=== PATIENT | male | born 1965 | race Caucasian/White ===

== ENCOUNTER 2018-06-30 06:33 | Day surgery (SDC) | payer BC ==
[~2018-06-30 06:33] MED LIST: Buffered Lidocaine 0.9% SYRIN* 5 ML/SYR SYRINGE INTRADERM ONE
[2018-06-30] MEDS ORDERED: ROPIVACAINE 5 MG/ML 30 ML BTL (0.5%) ONE (06:54)
[2018-06-30] MEDS ORDERED: Lidocaine 1% INJ* 10 MG/ML 30 ML SDV ONE (06:54)
[2018-06-30] MEDS ORDERED: ceFAZolin 2 GM PREMIX (*) 2 GM/50 ML BAG IVPB ONE (07:04)
[2018-06-30] MEDS ORDERED: Midazolam* 1 MG/ML 2 ML VIAL (2 MG) ONE (07:45)
[2018-06-30] MEDS ORDERED: fentaNYL* 50 MCG/ML 2 ML VIAL (100 MCG VIAL) ONE ×2 (07:45→08:53)
[2018-06-30] MEDS ORDERED: Propofol* 10 MG/ML 20 ML BTL IV PUSH ONE (08:38)
[2018-06-30] MEDS ORDERED: Naloxone* 0.4 MG/ML 1 ML VIAL IV PRN (09:17)
[2018-06-30] MEDS ORDERED: oxyCODONE/Acetamin 5/325 MG* TAB PO PRN (09:17)
[2018-06-30] MEDS ORDERED: Acetaminophen TAB* 325 MG PO PRN (09:17)
[2018-06-30] MEDS ORDERED: fentaNYL* 50 MCG/ML 2 ML VIAL (100 MCG VIAL) IV PRN (09:17)
[2018-06-30] MEDS ORDERED: Ondansetron INJ* 2 MG/ML VIAL IV PRN (09:17)
[2018-06-30 09:33] VITALS: BP 139/75
--- NOTE | 2018-07-01 02:17 | OP ---
DATE OF OPERATION: 06/30/18 - [facility] DATE OF : 65 ATTENDING SURGEON: Lizette Caballero MD POLICE GUARD: KHALIDA Gregory. Mr. Suazo did help throughout the procedure with preparation of the arm, wound retraction, and wound closure. ANESTHESIOLOGIST: Dr. Raya. ANESTHESIA: Low MAC with local 0.5% ropivacaine. PRE-OP DIAGNOSIS: Severe right carpal tunnel syndrome or compression of the median nerve of the wrist. POST-OP DIAGNOSIS: Severe right carpal tunnel syndrome or compression of the median nerve of the wrist. OPERATIVE PROCEDURE: Right open carpal tunnel release. TOURNIQUET TIME: 7 minutes. COMPLICATIONS: None. SPECIMEN: None. ESTIMATED BLOOD LOSS: Less than 25 cc. BRIEF HISTORY/INDICATION: Mr. Saez is a 52-year-old gentleman with chronic right hand pain and numbness. He failed conservative treatment for carpal tunnel syndrome and EMG/nerve conduction studies confirmed severe carpal tunnel syndrome. He elected to undergo open right carpal tunnel release. Informed consent was obtained from the patient. He understood the risks of surgery included but were not limited to bleeding, infection, damage to nearby structures, continued pain, continued weakness, continued numbness, need for further surgery, stroke, heart attack, blood clot, and . He wished to proceed. INTRAOPERATIVE FINDINGS: Intraoperatively, the patient was noted to have thickened fibrotic palmar fascia and a thickened fibrous transverse carpal ligament. No masses or ganglions were found in the carpal tunnel along the median nerve. DESCRIPTION OF PROCEDURE: Mr. Saez was identified on the preanesthesia unit. His right upper extremity was marked as the correct operative site. Informed consent was signed and placed in the chart. The patient was taken to the operating room and placed under low MAC. Tourniquet was placed on the right upper arm. Right lower extremity was prepped and draped in the usual sterile fashion. Preop time-out was made to correctly identify the patient, site, and side. Appropriate perioperative antibiotics were given within 1 hour of incision. An 8 cc of 0.5% ropivacaine was used for local anesthetic. The tourniquet was inflated and total tourniquet time for this procedure was 7 minutes. A 3-cm longitudinal incision was made over the carpal tunnel of the wrist. Incision was made with a 15-blade. Tenotomies were used to dissect down to the palmar fascia. A 15-blade was used to incise the palmar fascia in line with the incision. The transverse carpal ligament was easily visualized after placement of retractors. A 15-blade was used to meticulously release the transverse carpal ligament longitudinally. This was performed proximally until there was no further ligament identified. This was performed distally to the vascular arch and fat pad. The transverse carpal ligament was noted to be thickened and fibrosed. This was easily released without complication. Median nerve was well visualized. There were no visible ganglions or masses in the carpal tunnel. Tourniquet was turned down at 7 minutes. The incision was copiously irrigated with sterile saline. The incision was carefully closed using interrupted 3-0 nylon suture in a vertical mattress fashion. Sterile Xeroform, 4x4's, and Webril were used to cover the incision. A plaster volar splint was placed with Mustapha wrap. The patient's anesthesia was reversed without difficulty. He was taken to the PACU in stable condition. He will be in a splint with non-weightbearing right upper extremity. He will follow up in 3 days for a splint change. [id number]/[facility] #: [id number] [facility]ITAL[facility]et
== END 2018-06-30 10:14 | disposition home or self-care (01) ==
LOC: OR 06:33
PROVIDERS: ATTEND Orthopaedic Surgery Adult Reconstructive Orthopaedic Surgery
DX: G56.01 Carpal tunnel syndrome, right upper limb (principal); Z72.0 Tobacco use; I10 Essential (primary) hypertension; M54.5 Low back pain
CPT/HCPCS: J0690; J2250; J2704; J2795; J3010

== ENCOUNTER → 2018-08-24 06:40 | Day surgery (SDC) | payer BC ==
[~2018-08-24 06:40] MED LIST changes: +Atracurium* 10 MG/ML 10 ML VIAL ONE; +Buffered Lidocaine 0.9% SYRIN* 5 ML/SYR SYRINGE ONE; +Bupivacaine 0.25% SDV* 30 ML ONE; +Dexamethasone IV* 4 MG/ML 1 ML (4 MG) IV SLOW PU ONE; +Dexamethasone IV* 4 MG/ML 1 ML (4 MG) ONE; +DiMENhydriNATE IV* 50 MG/ML VIAL IV PUSH PRN; +EPHEDrine (Pressors)* 50 MG/ML VIAL ONE; +Famotidine IV* 10 MG/ML 2 ML (20 mg) IV ONE; +Famotidine IV* 10 MG/ML 2 ML (20 mg) ONE; +HYDROmorphone INJ1* 1 MG/ML SYRINGE IV PRN; +HYDROmorphone INJ1* 1 MG/ML SYRINGE ONE; +Ketorolac INJ* 30 MG/ML 1 ML VIAL ONE; +Levalbuterol 0.63MG/3ML NEB* UNIT OF USE INH ONE; +Lidocaine 2% PF * 5 ML VIAL ONE; +Midazolam* 1 MG/ML 5 ML VIAL (5 MG) ONE; +Naloxone* 0.4 MG/ML 1 ML VIAL IV PRN; +Ondansetron INJ* 2 MG/ML VIAL IV PRN; +Ondansetron INJ* 2 MG/ML VIAL ONE; +Propofol* 10 MG/ML 20 ML BTL IV PUSH ONE; +ceFAZolin 2 GM PREMIX in ORs 0 GM/0 ML BAG IVPB ONE; +ceFAZolin 2 GM PREMIX in ORs 2 GM/50 ML BAG IVPB ONE; +fentaNYL* 50 MCG/ML 2 ML VIAL (100 MCG VIAL) ONE; +fentaNYL* 50 MCG/ML 5 ML VIAL (250 MCG VIAL) ONE; +oxyCODONE/Acetamin 5/325 MG* TAB ONE; +oxyCODONE/Acetamin 5/325 MG* TAB PO PRN
[2018-08-24] MEDS: fentaNYL* 50 MCG/ML 2 ML VIAL (100 MCG VIAL) IV PRN ×2 (10:22→10:46)
[2018-08-24 11:36] VITALS: BP 139/83
--- NOTE | 2018-08-24 23:35 | OP ---
DATE OF OPERATION: 08/24/18 - [facility] DATE OF : 65 SURGEON: Ynaiv Rivera MD MOTOR BUS DRIVER: KHALIDA Oliver ANESTHESIOLOGIST: Dr. Vásquez. ANESTHESIA: General. 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 OPERATIVE PROCEDURE: 1. Right wrist proximal row carpectomy with radial styloidectomy. 2. Right posterior interosseous nerve neurectomy. 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 For any substantial labor, due to progressive instability, the wrist will clunk in and out of place and associated with large amount of discomfort and is making it very difficult for him to use the wrist. He has had his carpal tunnel release recently. This helped with numbness and tingling but not with the mechanical dorsal wrist pain. He has gone from been able to lift 80 pounds repetitively to having very limited use of the wrist. I had talked to him about his treatment options. These would include a radioscapholunate fusion versus a scaphoid excision and four-corner fusion versus a proximal row carpectomy. Ultimately, he smokes more than a pack a day and has no desire to stop smoking. I think that the risk of nonunion with either of the aforementioned limited fusions is unacceptably high to me. 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 ESTIMATED BLOOD LOSS: 2 mL. COMPLICATIONS: None. FINDINGS: See above and below. DESCRIPTION OF PROCEDURE: Jamie was seen in the preoperative area. The correct side, site, and procedure were identified. We came back to the operating room, the arm was prepped and draped in the usual fashion. A pre- scrub was performed. After draping was done, a time-out was performed. The arm was exsanguinated and the tourniquet inflated to 250 mmHg. I have made a dorsum midline incision just ulnar to Annabella's tubercle. Dissection was carried down and full-thickness flaps were raised off the extensor retinaculum. I then opened up the extensor retinaculum over the third dorsal compartment and transposed the EPL tendon. Subperiosteal dissection was used to free up the tendons of the second and fourth and fifth dorsal compartments. These were retracted out of the way and I then raised a distally based capsular U-flap. At this point, I went ahead and dissected out my posterior interosseous nerve. The distal 2 cm were excised and this was handed off as a specimen. I then went ahead and examined the wrist joint. There was kemar instability and in fact, the lunotriquetral joint was dislocated after I opened the flap. The proximal pole of the capitate had excellent articular cartilage. I went ahead and excised the lunate. I then excised the triquetrum. Both of these bones came out en bloc. Lastly, I excised the scaphoid bone in piecemeal fashion as it was too flexed and pronated to be able to safely excise it en bloc. After the scaphoid was excised, I went ahead and examined the wrist. There was a bit of impingement at the radial styloid and so I went ahead and performed a small radial styloidectomy. At this point, everything was looking good. So, I irrigated out the wound, the capsule was closed with 4-0 Ethibond suture. The extensor retinaculum was closed with 4-0 Prolene suture with the EPL tendon left transpose. The skin was closed with 3-0 Monocryl and Steri-Strips. The operative area was infiltrated with 0.25% Marcaine. The wounds were dressed and a short-arm wrist splint was applied with both dorsal and volar plaster slabs. Tourniquet was deflated and he was taken to the recovery room in stable condition. [id number]/[facility] #: [id number] [facility]ENTERNav[facility]et
== END | disposition home or self-care (01) ==
LOC: OR 06:40
PROVIDERS: ATTEND Orthopaedic Surgery Hand Surgery
DX: M25.331 Other instability, right wrist (principal); M19.031 Primary osteoarthritis, right wrist; M25.531 Pain in right wrist; I10 Essential (primary) hypertension; F17.210 Nicotine dependence, cigarettes, uncomplicated
CPT/HCPCS: 88302; 88304; 88311; A9270-GY; J0690; J1100; J1170; J1885; J2250; J2405; J2704; J3010

== ENCOUNTER 2022-07-08 02:00 | Inpatient (IN) ==
[2022-07-08 03:12] LABS: Hematocrit 43 % (42-52); Hemoglobin 14.4 g/dL (14.0-18.0); Mean Corpuscular HGB Conc 33 g/dL (31-36); Mean Corpuscular Hemoglobin 30 pg (27-31); Mean Corpuscular Volume 89 fL (80-94); Mean Platelet Volume 7.4 fL (7.4-10.4); Platelet Count 380 10^3/uL (150-450); Red Blood Count 4.88 10^6 /uL (4.18-5.48); Red Cell Distribution Width 13 % (10-15)
[2022-07-08 03:15] LABS: PO2 Arterial 62 mmHg (80-100)
[2022-07-08 03:18] LABS: PCO2 Arterial 88 mmHg (35-45)
[2022-07-08] MEDS ORDERED: cefTRIAXone 1 gm/50 mL D5W 1 GM/50 ML BAG IV ONE (03:20)
[2022-07-08 03:22] LABS: INR 0.95 (0.89-1.11)
[2022-07-08] MEDS ORDERED: methylPREDNISolone SOD SUCC 125 mg 2 ML VIAL IV ONE (03:26)
[2022-07-08] MEDS ORDERED: Albuterol HFA INHALER 8 gm MDI INH ONE (03:27)
[2022-07-08 03:40] LABS: ABS Basophils 0.1 10^3/ul (0-0.2); ABS Eosinophils 0.1 10^3/ul (0-0.6); ABS Lymphocytes 1.6 10^3/ul (1.0-4.8); ABS Monocytes 1.7 10^3/ul (0-0.8); ABS Neutrophils 21.6 10^3/ul (1.5-7.7); Eosinophil % 0.3 %; Lymphocyte % 6.3 %
[2022-07-08 03:48] LABS: Albumin 4.6 g/dL (3.2-5.2); Albumin/Globulin Ratio 1.5 (1-3); C Reactive Protein 2.12 mg/L (<8.01); Calcium 9.6 mg/dL (8.6-10.3); Globulin 3.1 g/dL (2-4); Potassium 4.5 mmol/L (3.5-5.0); Total Bilirubin 0.4 mg/dL (0.2-1.0); Total Protein 7.7 g/dL (6.4-8.9); eGFR CKD-EPI 107.7 (>60)
[2022-07-08 04:06] LABS: High Sensitivity Troponin 1 Hr 9 pg/mL (<20)
[2022-07-08 04:21] LABS: PO2 Arterial 87 mmHg (80-100)
[2022-07-08 04:49] LABS: PCO2 Arterial 77 mmHg (35-45)
[2022-07-08] MEDS ORDERED: Albuterol/Ipratropium NEB.SOL (2.5/0.5 MG) 3 ML NEB.SOLN INH ONE (05:02)
[2022-07-08] MEDS ORDERED: HYDROcodone/Acetamin 10/325 TAB (NF) PO PRN (05:41)
[2022-07-08] MEDS ORDERED: Al Hydrox/Mg Hydrox/Simet LIQ 30 ML UDC PO PRN (05:42)
[2022-07-08] MEDS ORDERED: NS 0.9% 1000 ml BAG 1,000 ML IV SCH (05:45)
[2022-07-08] MEDS ORDERED: LORazepam 2 mg VIAL 1 ml IV PUSH PRN (05:48)
[2022-07-08] MEDS ORDERED: Lorazepam PYXIS KEY PRN (05:48)
[2022-07-08] MEDS ORDERED: Albuterol/Ipratropium NEB.SOL (2.5/0.5 MG) 3 ML NEB.SOLN INH PRN (05:57)
[2022-07-08] MEDS ORDERED: DOXYcycline 100 MG in NS 0.9% 250 ml 250 ML IVPB SCH (06:00)
[2022-07-08] MEDS: Enoxaparin 30 MG/0.3 ML SYR SUBCUT SCH (06:17)
[2022-07-08] MEDS ORDERED: Albuterol 2.5mg/3 ml (0.083%) NEB.SOLN INH PRN (07:25)
[2022-07-08 07:35] LABS: Magnesium 1.7 mg/dL (1.9-2.7)
[2022-07-08] MEDS: Albuterol/Ipratropium NEB.SOL (2.5/0.5 MG) 3 ML NEB.SOLN INH SCH ×5 (08:02→23:23)
[2022-07-08] MEDS ORDERED: Magnesium Sulfate 2 gm BAG 2 GM/50 ML BAG IVPB ONE (08:06)
[2022-07-08] MEDS ORDERED: Perflutren Lipid Microsphere 3 ML VIAL ONE (08:13)
[2022-07-08] MEDS ORDERED: Ondansetron 4 mg VIAL 2 MG/ML 2 ml VIAL IV PRN (08:39)
[2022-07-08] MEDS: Pantoprazole VIAL 40 MG VIAL IV SCH (08:49)
[2022-07-08] MEDS: Multivitamins/Minerals TAB PO SCH (08:49)
[2022-07-08 08:52] LABS: Phosphorus 5.1 mg/dL (2.5-5.0)
[2022-07-08] MEDS: Mometasone/Formoter 200/5 MDI INH SCH ×2 (10:48→19:29)
[2022-07-08] MEDS: Megestrol 400 MG/10 ML SUSP PO SCH (10:59)
[2022-07-08 11:14] LABS: Urine Appearance Clear; Urine Bilirubin Negative (Negative); Urine Color Yellow; Urine Glucose Negative (Negative); Urine Ketones Negative (Negative); Urine Specific Gravity 1.018 (1.002-1.030)
[2022-07-08 11:15] LABS: Urine Blood Trace (Intact) (Negative); Urine Nitrite Negative (Negative); Urine Protein 1+ (30 mg/dL) (Negative); Urine Urobilinogen 0.2 (Negative) (Negative); Urine pH 5.5 (5.0-9.0)
[2022-07-08 11:30] LABS: Urine Bacteria Absent (Absent); Urine Red Blood Cell 2+(6-10/hpf) (Absent); Urine White Blood Cell Trace(0-5/hpf) (Absent)
[2022-07-08] MEDS: methylPREDNISolone SOD SUCC 40 mg/ml 1 ml VIAL IV SCH ×2 (13:09→19:24)
[2022-07-08 13:48] LABS: HIV 4th Generation Nonreactive (Nonreactive)
[2022-07-08] MEDS: Doxycycline 100 MG in NS 0.9% 250 ML BAG IVPB SCH (18:21)
[2022-07-08] MEDS ORDERED: cefTRIAXone 1 gm/50 mL D5W 1 GM/50 ML BAG IV SCH (23:45)
[2022-07-09] MEDS: Albuterol/Ipratropium NEB.SOL (2.5/0.5 MG) 3 ML NEB.SOLN INH SCH ×6 (02:54→22:48)
[2022-07-09 03:10] LABS: ABS Lymphocytes 0.7 10^3/ul (1.0-4.8); ABS Monocytes 0.6 10^3/ul (0-0.8); ABS Neutrophils 10.6 10^3/ul (1.5-7.7); Hematocrit 37 % (42-52); Mean Corpuscular HGB Conc 33 g/dL (31-36); Mean Corpuscular Hemoglobin 29 pg (27-31); Mean Corpuscular Volume 89 fL (80-94); Mean Platelet Volume 7.6 fL (7.4-10.4); Platelet Count 212 10^3/uL (150-450); Red Blood Count 4.09 10^6 /uL (4.18-5.48); Red Cell Distribution Width 13 % (10-15)
[2022-07-09] MEDS: methylPREDNISolone SOD SUCC 40 mg/ml 1 ml VIAL IV SCH (03:34)
[2022-07-09 03:51] LABS: Calcium 9.5 mg/dL (8.6-10.3); Magnesium 1.8 mg/dL (1.9-2.7); Phosphorus 3.1 mg/dL (2.5-5.0); Potassium 4.3 mmol/L (3.5-5.0); eGFR CKD-EPI 117.6 (>60)
[2022-07-09 03:57] LABS: Testosterone Total 24.63 ng/dL (240-950)
[2022-07-09] MEDS ORDERED: Magnesium Sulfate 2 gm BAG 2 GM/50 ML BAG IVPB ONE (04:06)
[2022-07-09] MEDS: Enoxaparin 30 MG/0.3 ML SYR SUBCUT SCH (05:15)
[2022-07-09] MEDS: Doxycycline 100 MG in NS 0.9% 250 ML BAG IVPB SCH ×2 (05:57→17:18)
[2022-07-09] MEDS: Mometasone/Formoter 200/5 MDI INH SCH ×2 (07:19→19:22)
[2022-07-09] MEDS: Megestrol 400 MG/10 ML SUSP PO SCH (09:15)
[2022-07-09] MEDS: Pantoprazole VIAL 40 MG VIAL IV SCH (09:16)
[2022-07-09] MEDS: Multivitamins/Minerals TAB PO SCH (09:19)
[2022-07-09] MEDS ORDERED: cefTRIAXone 1 gm/50 mL NS BAG 1 GM/50 ML BAG IVPB SCH (21:00)
[2022-07-10] MEDS: Albuterol/Ipratropium NEB.SOL (2.5/0.5 MG) 3 ML NEB.SOLN INH SCH ×4 (03:22→19:44)
[2022-07-10 03:30] LABS: ABS Lymphocytes 0.9 10^3/ul (1.0-4.8); ABS Monocytes 0.8 10^3/ul (0-0.8); ABS Neutrophils 7.9 10^3/ul (1.5-7.7); Hematocrit 35 % (42-52); Hemoglobin 11.5 g/dL (14.0-18.0); Lymphocyte % 8.8 %; Mean Corpuscular HGB Conc 33 g/dL (31-36); Mean Corpuscular Hemoglobin 30 pg (27-31); Mean Corpuscular Volume 90 fL (80-94); Mean Platelet Volume 7.9 fL (7.4-10.4); Platelet Count 206 10^3/uL (150-450); Red Blood Count 3.87 10^6 /uL (4.18-5.48); Red Cell Distribution Width 13 % (10-15); White Blood Count 9.6 10^3/uL (3.5-10.8)
[2022-07-10 04:28] LABS: Calcium 8.9 mg/dL (8.6-10.3); Magnesium 1.7 mg/dL (1.9-2.7); Potassium 3.8 mmol/L (3.5-5.0); eGFR CKD-EPI 119.7 (>60)
[2022-07-10] MEDS ORDERED: Magnesium Sulfate 2 gm BAG 2 GM/50 ML BAG IVPB ONE (04:37)
[2022-07-10] MEDS: Enoxaparin 30 MG/0.3 ML SYR SUBCUT SCH (06:08)
[2022-07-10] MEDS: Doxycycline 100 MG in NS 0.9% 250 ML BAG IVPB SCH ×2 (06:09→17:42)
[2022-07-10] MEDS: Mometasone/Formoter 200/5 MDI INH SCH ×2 (07:17→19:44)
[2022-07-10] MEDS ORDERED: Magnesium Hydroxide LIQ 30 ML UDC PO ONE (07:26)
[2022-07-10] MEDS: Multivitamins/Minerals TAB PO SCH (09:06)
[2022-07-10] MEDS: Pantoprazole VIAL 40 MG VIAL IV SCH (09:07)
[2022-07-10] MEDS: Megestrol 400 MG/10 ML SUSP PO SCH (09:08)
[2022-07-10] MEDS ORDERED: Albuterol/Ipratropium NEB.SOL (2.5/0.5 MG) 3 ML NEB.SOLN INH SCH (11:00)
[2022-07-10] MEDS ORDERED: Senna TAB 8.6 mg TAB PO SCH (21:00)
[2022-07-10] MEDS ORDERED: cefTRIAXone 1 gm/50 mL D5W 1 GM/50 ML BAG IV SCH (21:00)
[2022-07-11] MEDS: Albuterol/Ipratropium NEB.SOL (2.5/0.5 MG) 3 ML NEB.SOLN INH SCH ×3 (01:09→12:22)
[2022-07-11 05:41] LABS: ABS Lymphocytes 1.5 10^3/ul (1.0-4.8); ABS Monocytes 0.7 10^3/ul (0-0.8); ABS Neutrophils 6.8 10^3/ul (1.5-7.7); Eosinophil % 0.2 %; Hematocrit 37 % (42-52); Hemoglobin 12.5 g/dL (14.0-18.0); Lymphocyte % 16.1 %; Mean Corpuscular HGB Conc 33 g/dL (31-36); Mean Corpuscular Hemoglobin 30 pg (27-31); Mean Corpuscular Volume 90 fL (80-94); Mean Platelet Volume 8.1 fL (7.4-10.4); Platelet Count 219 10^3/uL (150-450); Red Blood Count 4.18 10^6 /uL (4.18-5.48); Red Cell Distribution Width 13 % (10-15)
[2022-07-11 05:59] LABS: Calcium 9.2 mg/dL (8.6-10.3); Magnesium 1.7 mg/dL (1.9-2.7); Potassium 3.9 mmol/L (3.5-5.0); eGFR CKD-EPI 121.2 (>60)
[2022-07-11] MEDS: Doxycycline 100 MG in NS 0.9% 250 ML BAG IVPB SCH (06:22)
[2022-07-11] MEDS: Enoxaparin 30 MG/0.3 ML SYR SUBCUT SCH (06:23)
[2022-07-11] MEDS: Mometasone/Formoter 200/5 MDI INH SCH (07:49)
[2022-07-11] MEDS ORDERED: Magnesium Sulfate 2 gm BAG 2 GM/50 ML BAG IVPB ONE (09:41)
[2022-07-11] MEDS: Multivitamins/Minerals TAB PO SCH (09:50)
[2022-07-11] MEDS: Pantoprazole VIAL 40 MG VIAL IV SCH (09:51)
[2022-07-11] MEDS: Megestrol 400 MG/10 ML SUSP PO SCH (10:54)
[2022-07-11 11:02] VITALS: BP 132/80
== END 2022-07-11 14:00 | disposition home or self-care (01) | DRG 140 ==
LOC: ED 02:00 → EDHOLD 05:10 → SUATTDRO 05:10 → ICU 07:50 → MED 07-10 10:57
PROVIDERS: ADMIT Internal Medicine; ATTEND Student in an Organized Health Care Education/Training Program